=== PATIENT | male | born 1980 | race Caucasian/White ===

== ENCOUNTER 2017-11-16 00:39 | Emergency (ER) | payer SELFPAY ==
[~2017-11-16 00:39] MED LIST: BACT800T5 PO; CEPH500C3 PO
[2017-11-16 00:43] VITALS: BP 126/85; PULSE 118; RESP 18; TEMP 97.4; O2SAT 100
[2017-11-16] MEDS ORDERED: AMOXICILLIN 875 MG TAB PO ONE (01:15)
[2017-11-16] MEDS ORDERED: oxyCODONE/ACETAMINOPHEN 5 MG/325 MG TAB PO ONE (01:15)
[2017-11-16] MEDS ORDERED: CHLO.12%30 SWISH-SPIT (01:24)
[2017-11-16] MEDS ORDERED: IBUP1TAB7 PO (01:24)
[2017-11-16] MEDS ORDERED: AMOX875T PO (01:24)
--- NOTE | 2017-11-16 01:26 | PD ---
HPI Chief Complaint: Oral / Dental Pain or Problem Time Seen by Provider: 00:56 Travel History International Travel<30 days: No Contact w/Intl Traveler<30days: No Traveled to known affect area: No History of Present Illness HPI Patient is a 37-year-old male presenting to the emergency room for evaluation of left lower tooth pain. Patient states that his tooth chipped last night, this afternoon he noticed facial swelling in the left lower cheek. He denies any fevers, chills, nausea or vomiting. Patient reports his pain is a 7 out of 10. He reports his pain is throbbing. Symptom onset was gradual, there are no alleviating factors. Symptom severity is moderate. PFSH Past Medical History Medical History: Denies Significant Hx Cardiovascular Problems: No Endocrine: No Genitourinary: No Musculoskeletal: No Neurologic: No Reproductive: No Respiratory: No Social History Alcohol Use: Yes Tobacco Use: Yes Substance Use: Yes Allergies-Medications (Allergen,Severity, Reaction): Coded Allergies: diclofenac (Unverified Allergy, Severe, THROAT SWELLING, 11/16/17) etodolac (Unverified Allergy, Severe, THROAT SWELLING, 11/16/17) flurbiprofen (Unverified Allergy, Severe, THROAT SWELLING, 11/16/17) ibuprofen (Unverified Allergy, Severe, THROAT SWELLING, 11/16/17) indomethacin (Unverified Allergy, Severe, THROAT SWELLING, 11/16/17) ketoprofen (Unverified Allergy, Severe, THROAT SWELLING, 11/16/17) ketorolac (Unverified Allergy, Severe, THROAT SWELLING, 11/16/17) naproxen (Unverified Allergy, Severe, THROAT SWELLING, 11/16/17) oxaprozin (Unverified Allergy, Severe, THROAT SWELLING, 11/16/17) Reported Meds & Prescriptions Reported Meds & Active Scripts Active Ibuprofen 800 Mg Tab 800 Mg PO Q6HR PRN Chlorhexidine Gluconate (Mouth) Liq (Chlorhexidine Gluconate) 0.12% Soln 15 Ml SWISH-SPIT BID 10 Days Amoxicillin 875 Mg Tab 875 Mg PO BID Keflex (Cephalexin Monohydrate) 500 Mg Cap 500 Mg PO QID Bactrim DS (Sulfamethoxazole-Trimethoprim DS) 1 Tab Tab 1 Tab PO BID 10 Days Review of Systems Except as stated in HPI: all other systems reviewed are Neg HENT: Positive: Dental Difficulties Musculoskeletal: Positive: Edema Physical Exam Narrative GENERAL: Well-developed, well-nourished, alert male. SKIN: Warm and dry. Mild edema to left lower jaw, nonfluctuant, no erythema noted. MOUTH: Mucous membranes moist, no lesions, tongue and gums appear normal. There is a broken tooth in the left lower molar, there is mild edema to the gumline surrounding tooth. No obvious abscess, no localized area of fluctuance HEAD: Normocephalic. EYES: No scleral icterus. No injection or drainage. NECK: Supple, trachea midline. No JVD or lymphadenopathy. CARDIOVASCULAR: Regular rate and rhythm without murmurs, gallops, or rubs. RESPIRATORY: Breath sounds equal bilaterally. No accessory muscle use. GASTROINTESTINAL: Abdomen soft, non-tender, nondistended. MUSCULOSKELETAL: No cyanosis, or edema. BACK: Nontender without obvious deformity. No CVA tenderness. Data Data Last Documented VS Vital Signs Date Time Temp Pulse Resp B/P (MAP) Pulse Ox O2 Delivery O2 Flow Rate FiO2 11/16/17 01:44 11/16/17 01:38 100 17 11/16/17 00:43 97.4 100 Orders Orders Amoxicillin (Trimox) (11/16/17 01:15) Oxycodone-Acetamin 5-325 Mg (Percocet (11/16/17 01:15) Ed Discharge Order (11/16/17 01:39) MDM Medical Decision Making Medical Screen Exam Complete: Yes Emergency Medical Condition: Yes Interpretation(s) Vital Signs Date Time Temp Pulse Resp B/P (MAP) Pulse Ox O2 Delivery O2 Flow Rate FiO2 11/16/17 01:44 11/16/17 01:38 100 17 117/77 (90) 11/16/17 00:43 97.4 118 18 126/85 (99) 100 Vital Signs Date Time Temp Pulse Resp B/P (MAP) Pulse Ox O2 Delivery O2 Flow Rate FiO2 11/16/17 00:43 97.4 118 18 126/85 (99) 100 Differential Diagnosis Abscess versus cellulitis versus Dentalgia versus dental caries Narrative Course Patient is a 37-year-old male presenting with 1 day of dental pain and a few hours of left lower cheek swelling. Patient's vital signs reviewed, patient is tachycardic however he is in pain. Patient will be given Percocet and amoxicillin now. Will assess vital signs. There is no localized area of fluctuance in order to drain an abscess. Patient was advised to return for reevaluation in 24-48 hours if there did not appear to be any improvement in the edema or if edema worsens despite being on antibiotic therapy. Patient verbalized understanding of these instructions. Patient was advised that he would need to follow-up with dentist for more further evaluation and management of his dental disease. Patient requested a prescription for ibuprofen, verified with patient his allergies to medication. He states that he is not allergic to ibuprofen. Diagnosis Primary Impression: Dental abscess Referrals: Dentist 3 days Patient Instructions: Dental Abscess (GEN), Dental Caries (DC), General Instructions, Narcotic given in the ED Additional Instructions: Follow-up with a dentist for further evaluation and management Complete full course of antibiotics as prescribed Take medication as directed Return to emergency department for any new or worsening symptoms as discussed Follow-up with your primary doctor Med/Other Pt SpecificInfo: Prescription(s) given Scripts Ibuprofen (Ibuprofen) 800 Mg Tab 800 MG PO Q6HR Y for PAIN, #40 TAB 0 Refills Prov: Gabbie Medley 11/16/17 Chlorhexidine Gluconate (Mouth) Liq (Chlorhexidine Gluconate (Mouth) Liq) 0.12% Soln 15 ML SWISH-SPIT BID for 10 Days, #300 ML 0 Refills Prov: Gabbie Medley 11/16/17 Amoxicillin (Amoxicillin) 875 Mg Tab 875 MG PO BID for Infection, #20 TAB 0 Refills Prov: Gabbie Medley 11/16/17 Disposition: 01 DISCHARGE HOME Condition: Stable Gabbie Medley Nov 16, 2017 01:26
[2017-11-16 01:38] VITALS: BP 117/77; PULSE 100; RESP 17
== END 2017-11-16 01:49 | disposition home or self-care (01) ==
LOC: NEPD 00:39
DX: K04.7 Periapical abscess without sinus (principal); Z72.0 Tobacco use; Z88.8 Allergy status to other drugs, medicaments and biological substances; Z88.6 Allergy status to analgesic agent
CPT/HCPCS: 99283